=== PATIENT | female | born 1990 | race Caucasian/White ===

== ENCOUNTER 2025-06-28 17:55 | Outpatient (CLI) | payer OTHER ==
[~2025-06-28] VITALS: Ht 167.6 cm; Wt 86.2 kg
[2025-06-28 15:43] VITALS: BP 129/80
[2025-06-28 19:47] VITALS: BP 126/75
[2025-06-28 20:29] VITALS: BP 126/75; BP 129/80; O2SAT 99
[2025-06-28] MEDS ORDERED: MORPHINE SULFATE 4 MG/ML VIAL IV PRN (21:30)
[2025-06-28 21:48] VITALS: BP 130/88
[2025-06-28] MEDS ORDERED: FAMOTIDINE/PF 20 MG in 0.9 % SODIUM CHLORIDE 8 ML IV PUSH SCH (22:00)
[2025-06-28] MEDS ORDERED: FAMOTIDINE/PF 20 MG/2 ML VIAL ONE (22:20)
[2025-06-28 23:27] LABS: BASO % 0.2 % (0.1-1.2); EOS # 0.01 (0.04-0.54); EOS % 0.1 % (0.7-7.0); LYMPH # 0.51 (1.18-3.74); LYMPH % 3.3 % (19.3-53.1); MEAN PLATELET VOLUME 11.00 fl (9.4-12.4); MONO # 0.34 (0.24-0.82); MONO % 2.2 % (4.7-12.5); NEUT # 14.53 (1.56-6.13); NEUT % 93.5 % (34.0-71.1); RED CELL DISTRIBUTION WIDTH 12.9 % (11.6-14.4)
[2025-06-28 23:42] LABS: INR 0.98
[2025-06-28 23:46] LABS: ALT/SGPT 30.0 U/L (12-78); AST/SGOT 21.0 U/L (15-37); BILIRUBIN TOTAL 0.98 mg/dL (0.3-1.2); BUN CREA RATIO 17.0 (7.0-25.0); CREATININE SERUM 0.47 mg/dL (0.55-1.02); GFR 152.61; GLOBULINA 3.6 G/DL (2.4-3.5); GLUCOSE FASTING 85.0 mg/dL (65-100); OSMOLALITY SERUM 279.0 MOSM/KG (275-295)
[2025-06-29 00:27] VITALS: BP 119/74
[2025-06-29 03:10] VITALS: BP 105/57
[2025-06-29 07:46] VITALS: BP 135/76
== END 2025-06-29 08:12 | disposition home or self-care (01) ==
LOC: OBS/DEL 17:55 → LDR 20:55 → OBS/DEL 06-29 08:12 → LDR 06-29 08:12
PROVIDERS: ATTEND Obstetrics & Gynecology
DX: O26.893 Other specified pregnancy related conditions, third trimester (principal); R10.20 Pelvic and perineal pain unspecified side; Z3A.38 38 weeks gestation of pregnancy

== ENCOUNTER 2025-07-10 17:49 | Inpatient (IN) | payer OTHER ==
[~2025-07-10] VITALS: Ht 167.6 cm; Wt 87.5 kg
[2025-07-10] MEDS ORDERED: RINGERS SOLUTION,LACTATED 1,000 ML IV SCH (18:00)
[2025-07-10] MEDS ORDERED: MISOPROSTOL 25 MCG TABLET VAG ONE (18:00)
[2025-07-10 18:43] LABS: BASO % 0.3 % (0.1-1.2); EOS # 0.08 (0.04-0.54); EOS % 0.8 % (0.7-7.0); LYMPH # 1.97 (1.18-3.74); LYMPH % 18.9 % (19.3-53.1); MEAN PLATELET VOLUME 10.90 fl (9.4-12.4); MONO # 0.64 (0.24-0.82); MONO % 6.1 % (4.7-12.5); NEUT # 7.53 (1.56-6.13); NEUT % 72.4 % (34.0-71.1); RED CELL DISTRIBUTION WIDTH 13.2 % (11.6-14.4)
[2025-07-10 18:44] VITALS: BP 120/80
[2025-07-10 19:06] LABS: INR 0.97
[2025-07-10 19:10] LABS: ALT/SGPT 31.0 U/L (12-78); AST/SGOT 13.0 U/L (15-37); BILIRUBIN TOTAL 0.49 mg/dL (0.3-1.2); BUN CREA RATIO 11.0 (7.0-25.0); CREATININE SERUM 0.54 mg/dL (0.55-1.02); GFR 130.02; GLOBULINA 3.4 G/DL (2.4-3.5); GLUCOSE FASTING 100.0 mg/dL (65-100); OSMOLALITY SERUM 279.0 MOSM/KG (275-295)
[2025-07-10 23:28] VITALS: BP 122/82
[2025-07-11] VITALS (10 sets, daily range): BP systolic 113–147; BP diastolic 63–96
[2025-07-11] MEDS ORDERED: MORPHINE SULFATE 4 MG/ML VIAL IV PRN (07:15)
[2025-07-11] MEDS ORDERED: OXYTOCIN 20 UNITS/500ML RL PIGGYBAG IV ONE (07:27)
[2025-07-11] MEDS ORDERED: OXYTOCIN 500 ML IV SCH (07:30)
[2025-07-11] MEDS ORDERED: PRENATABS RX T1 EACH PO (07:31)
[2025-07-11] MEDS ORDERED: ERYTHROMYCIN BASE OPHT 1GM EACH TUBE OP ONE (17:30)
[2025-07-11] MEDS ORDERED: OXYTOCIN 20 UNITS/1000ML RL PIGGYBAG IV ONE ×2 (17:30→19:43)
[2025-07-11] MEDS ORDERED: CHLORHEXIDINE GLUCONATE 120 ML BOTTLE TOP ONE (17:31)
[2025-07-11] MEDS ORDERED: LIDOCAINE HCL 1% 10ML VIAL ONE (17:31)
[2025-07-12] VITALS: BP 129/80
[2025-07-12 07:21] LABS: BASO % 0.3 % (0.1-1.2); EOS # 0.06 (0.04-0.54); EOS % 0.3 % (0.7-7.0); LYMPH # 1.93 (1.18-3.74); LYMPH % 10.8 % (19.3-53.1); MEAN PLATELET VOLUME 11.90 fl (9.4-12.4); MONO # 1.10 (0.24-0.82); MONO % 6.1 % (4.7-12.5); NEUT # 14.65 (1.56-6.13); NEUT % 81.8 % (34.0-71.1); RED CELL DISTRIBUTION WIDTH 13.2 % (11.6-14.4)
[2025-07-12 10:41] VITALS: BP 123/84; O2SAT 98
[2025-07-12 15:57] VITALS: BP 122/82; O2SAT 98
[2025-07-12 20:45] VITALS: BP 128/80; O2SAT 97
[2025-07-13] VITALS: BP 139/84
[2025-07-13 08:00] VITALS: BP 137/90
== END 2025-07-13 14:28 | disposition home or self-care (01) | DRG 807 ==
LOC: LDR 17:49 → OB/GYN 07-11 10:23
PROVIDERS: Obstetrics & Gynecology Gynecology; ADMIT Obstetrics & Gynecology; ATTEND Obstetrics & Gynecology
PROC: 4A0HXCZ Measurement of Products of Conception, Cardiac Rate, External Approach (ICD-10-PCS; 2025-07-10)
PROC: 3E0P7VZ Introduction of Hormone into Female Reproductive, Via Natural or Artificial Opening (ICD-10-PCS; 2025-07-10)
PROC: 4A1HXCZ Monitoring of Products of Conception, Cardiac Rate, External Approach (ICD-10-PCS; 2025-07-10)
PROC: 10E0XZZ Delivery of Products of Conception, External Approach (ICD-10-PCS; principal; 2025-07-11)
PROC: 0HQ9XZZ Repair Perineum Skin, External Approach (ICD-10-PCS; 2025-07-11)
PROC: 3E033VJ Introduction of Other Hormone into Peripheral Vein, Percutaneous Approach (ICD-10-PCS; 2025-07-11)
DX: O70.0 First degree perineal laceration during delivery (principal); Z37.0 Single live birth; Z3A.38 38 weeks gestation of pregnancy